=== PATIENT | male | born 1965 | race Caucasian/White ===

== ENCOUNTER 2025-09-04 13:38 | Emergency (ER) | payer SELFPAY ==
[~2025-09-04] VITALS: Ht 170.2 cm; Wt 99.8 kg
[2025-09-04 13:53] LABS: BASOPHILS ABSOLUTE AUTO 0.04 K/mm3 (0.00-0.23); BASOPHILS PERCENT AUTO 1 % (0-2); EOSINOPHILS ABSOLUTE AUTO 0.09 K/mm3 (0.00-0.68); EOSINOPHILS PERCENT AUTO 1 % (0-6); Hematocrit 38.6 % (37.0-53.0); Hemoglobin 13.7 g/dL (13.5-17.5); IMMATURE GRAN ABSOLUTE AUTO 0.01 K/mm3 (0.00-0.10); IMMATURE GRAN PERCENT AUTO 0 % (0-1); LYMPHOCYTES ABSOLUTE AUTO 1.20 K/mm3 (0.84-5.20); LYMPHOCYTES PERCENT AUTO 18 % (21-46); MONOCYTES ABSOLUTE AUTO 0.32 K/mm3 (0.16-1.47); MONOCYTES PERCENT AUTO 5 % (4-13); Mean Corpuscular HGB Conc 35.5 g/dL (31.5-36.5); Mean Corpuscular Volume 81 fL (80-100); NEUTROPHILS ABSOLUTE AUTO 4.91 K/mm3 (1.96-9.15); NEUTROPHILS PERCENT AUTO 75 % (41-73); NRBC ABSOLUTE 0.00 K/mm3 (0.00-0.02); NRBC Auto 0.0 /100 WBC (0.0-0.2); Platelet Count 293 K/mm3 (150-400); RDW Coefficient Variation 11.9 % (11.7-14.2); RDW Standard Deviation 34.6 fL (35.1-46.3)
[2025-09-04 14:12] LABS: Alanine Aminotransfer (ALT/SGP 38.0 U/L (12-78); Albumin, Blood 4.2 g/dL (3.4-5.0); Albumin/Globulin Ratio 1.3 (0.8-1.8); Anion Gap 7.0 mmol/L (3-11); Aspartate Aminotrans (AST/SGOT 18.0 U/L (12-37); Bilirubin, Total 0.8 mg/dL (0.1-1.0); Blood Urea Nitrogen 12.0 mg/dL (8-24); CO2, Blood 25.0 mmol/L (21-32); Calcium, Blood 9.5 mg/dL (8.5-10.1); Chloride, Blood 107.0 mmol/L (98-108); Creatinine, Blood 0.85 mg/dL (0.60-1.20); Globulin, Blood 3.2 g/dL (2.2-4.0); Glucose, Blood 109.0 mg/dL (70-99); Potassium, Blood 3.7 mmol/L (3.5-5.5); Sodium, Blood 135.0 mmol/L (136-145); Total Protein, Blood 7.4 g/dL (6.4-8.2)
[2025-09-04] MEDS ORDERED: Ketorolac Tromethamine 30mg Vial IV ONE (14:20)
[2025-09-04] MEDS ORDERED: Metoclopramide HCl 5MG / ML 2ML Vial IV ONE (14:20)
[2025-09-04] MEDS ORDERED: DiphenhydrAMINE HCl 50 MG/ML 1ML Vial IV ONE (14:25)
[2025-09-04] MEDS ORDERED: NS 500 ML IV SCH (14:25)
[2025-09-04] MEDS ORDERED: SUMA25 PO (14:31)
[2025-09-04] MEDS ORDERED: LORazepam 2 MG/ML 1ML Injection IV ONE (15:00)
[2025-09-04 15:21] LABS: Prothrombin Time Results 11.6 Sec (9.7-11.5)
[2025-09-04] MEDS ORDERED: Prochlorperazine Edisylate 10 mg Vial IV ONE (15:45)
[2025-09-04] MEDS ORDERED: Benztropine Mesylate 1 MG/ML 2ML Amp IV ONE (15:45)
== END 2025-09-04 16:52 | disposition home or self-care (01) ==
LOC: ER 13:38
PROVIDERS: Student in an Organized Health Care Education/Training Program
DX: G43.909 Migraine, unspecified, not intractable, without status migrainosus (principal); F41.9 Anxiety disorder, unspecified; Z88.5 Allergy status to narcotic agent; Z79.899 Other long term (current) drug therapy
CPT/HCPCS: 70450; 70496; 70498; 80053; 85025; 85610; 85730; 93005; 93010; 96374; 96375; 99284-25; J0515; J0780; J1200; J1885; J2060; J2765; J7030; Q9967